=== PATIENT | male | born 1960 | race African-American/Black ===

== ENCOUNTER 2018-04-22 13:43 | Emergency (ER) | payer OTHER ==
[2018-04-22 13:53] VITALS: BP 131/72
[2018-04-22] MEDS ORDERED: NORCO 5/325 PO ONE (14:02)
--- NOTE | 2018-04-22 14:07 | Emergency Department Report ---
Chief Complaint: Laceration/Recheck/Suture Stated Complaint: FINGER LACERATIONS Time Seen by Provider: 04/22/18 13:59 - HPI History of Present Illness: 57-year-old male presents to the emergency department with lacerations and pain to the right thumb and index finger, as well as the left index and middle fingers, that occurred after he was cut by a table saw. He went to an urgent care where they just bandaged him up. He did not take anything for discomfort prior to presentation. Unknown last tetanus vaccination. - ROS Review of Systems: Positive for finger pain and lacerations Negative for fever - Exam Vital Signs: Vital Signs 04/22/18 13:49 Temperature 98.0 F Pulse Rate 63 Respiratory 16 Rate Blood Pressure 131/72 O2 Sat by Pulse 100 Oximetry Physical Exam: Patient is well bandaged at this point but appears to have some lacerations and bleeding from the right thumb and index finger as well as the left index and middle fingers. Radial pulse +2 over 4 bilaterally. MSE screening note: Focused history and physical exam performed. Due to findings the following was ordered: Patient will have x-rays of his right and left hands including the fingers. He will receive a tetanus vaccination. He has gotten a Chavies for discomfort. ED Disposition for MSE Condition: Stable
[2018-04-22] MEDS ORDERED: BOOSTRIX IM ONE (14:08)
[2018-04-22] MEDS ORDERED: CLEOCIN 900 MG/50 mL 900 MG/50 ML BAG IV ONE (14:36)
[2018-04-22] MEDS ORDERED: ZOFRAN IV ONE (14:36)
[2018-04-22] MEDS ORDERED: MORPHINE IV PRN (14:36)
--- NOTE | 2018-04-22 15:18 | XRay Report ---
BILATERAL HANDS, 3 VIEWS History: Laceration, pain. Findings: Amputation of the distal right index finger is identified including soft tissue and half of the distal phalanx. Soft tissue laceration is also identified in the left index finger near the PIP joint. The remaining bony structures are intact. No joint pathology is identified. Impression: Amputation of the distal right index finger. Soft tissue laceration of the left index finger.
[2018-04-22] MEDS ORDERED: TRIPLE ANTIBIOTIC TP ONE ×2 (18:06→20:42)
--- NOTE | 2018-04-22 19:01 | Emergency Department Report ---
ED Laceration HPI - HPI Chief Complaint: Laceration/Recheck/Suture Stated Complaint: FINGER LACERATIONS Time Seen by Provider: 04/22/18 13:59 Occurred When: Today Location: Upper Extremity Severity: mild Tetanus Status: Not up to Date Laceration Symptoms: Yes Pain, No Foreign Body Sensation, No Numbness, No Weakness Other History: This is a 57-year-old male nontoxic, well nourished in appearance , no acute signs of distress presents to the ED with c/o of left middle and index finger laceration that occurred this afternoon. Patient is also c/o right index finger amputation and right thumb abrasion. Patient stated he was at work and cut his fingers agaisnt the table saw. Patient denies any other trauma. PAtient denies decreased sensation, decreased range of motion, fever, chills, nausea, vomiting, chest pain, short of breath, headache or stiff neck. Patient denies any allergies significant past medical history. A coworker/ friend has been there to translate. Patient that he is not up-to-date with tetanus. ED Review of Systems ROS: Stated complaint: FINGER LACERATIONS Other details as noted in HPI Constitutional: denies: chills, fever Eyes: denies: eye pain, eye discharge, vision change ENT: denies: ear pain, throat pain Respiratory: denies: cough, shortness of breath, wheezing Cardiovascular: denies: chest pain, palpitations Endocrine: no symptoms reported Gastrointestinal: denies: abdominal pain, nausea, diarrhea Genitourinary: denies: urgency, dysuria Musculoskeletal: denies: back pain, joint swelling, arthralgia Skin: denies: rash, lesions Neurological: denies: headache, weakness, paresthesias Psychiatric: denies: anxiety, depression Hematological/Lymphatic: denies: easy bleeding, easy bruising ED Past Medical Hx - Past Medical History Previous Medical History?: No - Surgical History Past Surgical History?: No - Social History Smoking Status: Current Every Day Smoker Substance Use Type: None - Medications Home Medications: Home Medications Medication Instructions Recorded Confirmed Last Taken Type Acetaminophen/Codeine [Tylenol 1 tab PO Q6H PRN #12 tab 04/22/18 Unknown Rx /Codeine # 3 tab] Clindamycin [Clindamycin CAP] 300 mg PO Q8H #21 cap 04/22/18 Unknown Rx Ibuprofen [Motrin] 600 mg PO Q8H PRN #30 tablet 04/22/18 Unknown Rx Laceration Physical Exam - Exam General: Vital signs noted. No distress. Alert and acting appropriately. GENERAL: The patient is a well-developed, well-nourished in no apparent distress. Patient is alert and acting appropriately for age. Alert and oriented 3, no apparent distress, normal gait, atraumatic. HEENT: Head is normocephalic and atraumatic. PERRL, Extraocular muscles are intact. Pupils are equal, round, and reactive to light and accommodation. Nares appeared normal. Mouth is well hydrated and without lesions. Mucous membranes are moist. Posterior pharynx clear of any exudate or lesions. Mouth is well hydrated and without lesions. Tonsils not erythematous or swollen. Uvula midline. Tongue elevated. Mucous members are moist. Posterior pharynx clear, no exudate or lesions. Patent airways. NECK: Supple. No carotid bruits. No lymphadenopathy or thyromegaly.nontender. No meningitic signs are noted. LUNGS: Clear to auscultation. Non labor breathing. No intercostal retractions. Symmetrical with respiration, no wheezing, no rales, or crackles. HEART: Regular rate and rhythm without murmur, rubs or gallops. No reproducible. S1, S2 present, regular rate and rhythm without murmur, no rubs, no gallops. ABDOMEN: Soft, nontender, and nondistended. Positive bowel sounds. No hepatosplenomegaly was noted. No guarding or rebound tenderness, negative epigastric bruit. Negative psoas sign, negative sánchez sign, negative McBurneys sign EXTREMITIES: Without any cyanosis, clubbing, rash, lesions or edema. Peripheral pulses intact. Capillary refill less than 2 seconds. Full range of motion bilaterally. NEUROLOGIC: Cranial nerves II through XII are grossly intact. Alert and oriented x 3. Normal gait. Symmetrical strength and sensation. Reflexes 2+ throughout. Cerebellar testing normal. GCS score of 15. PSYCHIATRIC: Normal affect with no suicidal or homicidal ideations. Skin: 3 cm superficial laceration to left middle finger with nail avulsion, 2 cm superficial laceration to the left distal finger, distal amputation of right index finger with no bone visualization, right proximal thumb abrasion. Laceration Location: Upper Extremity Laceration Exam: Yes Normal Distal CMS, No Foreign Body, No Exposed Tendon, Vessel, or Nerve, No Tendon Injury ED Course Vital Signs 04/22/18 04/22/18 13:49 14:16 Temperature 98.0 F Pulse Rate 63 Respiratory 16 18 Rate Blood Pressure 131/72 O2 Sat by Pulse 100 Oximetry - Reevaluation(s) Reevaluation #1: 04/22/18 19:13 Patient is speaking in full sentences with no signs of distress noted. - Consultations Consultation #1: 04/22/18 19:15 patient was consulted with Dr. Barksdale (orthopedic) due to lacerations and amputation about patient history, physical exam and x-ray images if it is okay for patient to have a follow-up appointment. - Laceration /Wound Repair Left Hand Wound Location: upper extremity Wound's Depth, Shape: superficial Wound Explored: clean Irrigated w/ Saline (ccs): 40 Betadine Prep?: Yes Anesthesia: 1% Lidocaine Volume Anesthetic (ccs): 6 Wound Debrided: minimal Wound Repaired With: sutures Suture Size/Type: 5:0 (Ethilon) Number of Sutures: 13 Layer Closure?: No Sterile Dressing Applied?: Yes Progress: Under sterile field, I used Betadine to clean the area. I then used 40 mL of normal saline to flush the area. I did use 1% lidocaine plain for digital block to the proximal index and middle fingers fingers with total of 3 mL on each finger. I then used a 5-0 Ethilon to suture the laceration with total of 6 sutures to the left index finger and 7 sutures total to left middle finger. I then applied triple antibiotic with Xeroform and 4 X 4 with tape. Minimal bleeding noted but is under control. Patient tolerated procedure well with no signs of distress. ED Medical Decision Making - Medical Decision Making This is a 57-year-old male that presents with laceration. Patient is stable and was examined by me. The laceration suturing has been performed and has been performed and patient tolerated well. A sterile dressing has been applied. Patient was educated on proper wound care. Patient received clindamycin 900 mg IV in the ER. Patient also received a tetanus booster in the ER. Clindamycin and Tylenol with codeine and was instructed not to operate any machinery while taking Tylenol with codeine due to drowsiness. Other fingers of right hand has been applied triple ointment antibiotics to that dictation as well as hemostatic agent and a sterile dressing. Patient was instructed to return in 10 days for suture removal. Patient was instructed to refer to Follow-up with a primary care doctor in 3-5 days or if symptoms worsen and continue return to emergency room as soon as possible. At time of discharge , the patient does not seem toxic or ill in appearance. No acute signs of distress noted. Patient agrees to discharge treatment plan of care. No further questions noted by the patient. Critical care attestation.: If time is entered above; I have spent that time in minutes in the direct care of this critically ill patient, excluding procedure time. ED Disposition Clinical Impression: Laceration, Abrasion Amputation finger Qualifiers: Encounter type: initial encounter Qualified Code(s): S68.119A - Complete traumatic metacarpophalangeal amputation of unspecified finger, initial encounter Disposition: TO HOME OR SELFCARE Is pt being admited?: No Does the pt Need Aspirin: No Condition: Stable Instructions: Laceration (ED), Suture Care (ED), Finger Amputation (ED), Acetaminophen/Codeine (By mouth) Additional Instructions: Follow-up with a orthopedic doctor in 3-5 days or if symptoms worsen and continue return to emergency room as soon as possible. Do not operate any machinery while taking Tylenol with codeine as this may cause drowsiness. Prescriptions: Acetaminophen/Codeine [Tylenol /Codeine # 3 tab] 1 tab PO Q6H PRN #12 tab PRN Reason: Pain , Severe (7-10) Clindamycin [Clindamycin CAP] 300 mg PO Q8H #21 cap Ibuprofen [Motrin] 600 mg PO Q8H PRN #30 tablet PRN Reason: Pain Referrals: KYLE SELF MD [Primary Care Provider] - 3-5 Days STEVEN BARKSDALE MD [Staff Physician] - 3-5 Days [facility] [Outside] - 3-5 Days Forms: Work/School Release Form(ED)
[2018-04-22] MEDS ORDERED: MORPHINE IM ONE (20:14)
== END 2018-04-22 21:16 | disposition home or self-care (01) ==
LOC: ED 13:43
DX: S61.313A Laceration without foreign body of left middle finger with damage to nail, initial encounter (principal); S60.311A Abrasion of right thumb, initial encounter; F17.200 Nicotine dependence, unspecified, uncomplicated; Z89.021 Acquired absence of right finger(s); W29.8XXA Contact with other powered hand tools and household machinery, initial encounter; Y93.89 Activity, other specified; Y92.89 Other specified places as the place of occurrence of the external cause; Y99.8 Other external cause status
CPT/HCPCS: 12002; 36415; 73130; 80307; 90471; 90715; 96365; 96372; 96375; 99284; G0480; J2270; J2405; 80320; A6250